=== PATIENT | male | born 1955 | race Caucasian/White ===

== ENCOUNTER 2016-11-22 00:38 | Emergency (ER) | payer BC ==
[2016-11-22 00:44] VITALS: BP 209/100; BMI 31.1
[2016-11-22] MEDS ORDERED: TORADOL 30 MG VIAL ONE (00:45)
[2016-11-22] MEDS ORDERED: NS 1000 ML 1,000 ML ONE (00:45)
[2016-11-22] MEDS ORDERED: TORADOL 30 MG VIAL IVP ONE (00:52)
[2016-11-22] MEDS ORDERED: NS 1000 ML 1,000 ML IV ONE (00:52)
[2016-11-22 01:26] LABS: BASOPHILS # (AUTO) 0.1 X10^3/uL (0.0-0.1); BASOPHILS % (AUTO) 1.1 % (0.2-1.0); EOSINOPHILS # (AUTO) 0.2 x10^3/uL (0.0-0.2); EOSINOPHILS % (AUTO) 1.9 % (0.9-2.9); HEMATOCRIT 37.2 % (42.0-54.0); HEMOGLOBIN 12.7 g/dL (13.5-18.0); LYMPHOCYTES # (AUTO) 1.9 X10^3/uL (1.3-2.9); LYMPHOCYTES % (AUTO) 23.5 % (21.0-51.0); MEAN CORPUSCULAR HEMOGLOBIN 30.7 pg (27.0-34.0); MEAN CORPUSCULAR HGB CONC 34.1 g/dL (33.0-35.0); MEAN PLATELET VOLUME 9.1 fL (7.4-11.0); MONOCYTES # (AUTO) 0.8 x10^3/uL (0.3-0.8); MONOCYTES % (AUTO) 9.4 % (0.0-13.0); NEUTROPHILS # (AUTO) 5.1 x10^3/uL (2.2-4.8); NEUTROPHILS % (AUTO) 64.1 % (42.0-75.0); PLATELET COUNT 218 X10^3/uL (150.0-450.0); RED BLOOD COUNT 4.13 X10^6/uL (4.7-6.0); RED CELL DISTRIBUTION WIDTH 13.7 % (11.6-16.5)
[2016-11-22 01:35] LABS: ALANINE AMINOTRANSFERASE 19 Units/L (12-78); ALBUMIN 3.4 g/dL (3.4-5.0); ALKALINE PHOSPHATASE 40 Units/L (46-116); ASPARTATE AMINO TRANSFERASE 15 Units/L (15-37); BLOOD UREA NITROGEN 21 mg/dL (7-18); CALCIUM 7.7 mg/dL (8.5-10.1); CARBON DIOXIDE 24.4 mmol/L (21-32); CHLORIDE 107 mmol/L (98-107); COR NA(FOR HYPERGLY) 140 mmol/L (136-145); CREATININE 1.54 mg/dL (0.70-1.30); GLUCOSE 166 mg/dL (65-99); SODIUM 138 mmol/L (136-145); TOTAL PROTEIN 6.7 g/dL (6.4-8.2); eGFR BLACK RACES 59 (>60); eGFR NON BLACK RACES 49 (>60)
--- NOTE | 2016-11-22 01:50 | CT ---
EXAM: CT ABDOMEN AND PELVIS WITHOUT CONTRAST INDICATION: Right flank pain COMPARISION: No priors available for comparison TECHNIQUE: Axial CT examination of the abdomen and pelvis was performed without intravenous contrast. Coronal a nd sagittal reconstructions were created using the axial data. FINDINGS: The lung bases are clear. The liver, spleen, pancreas, hand adrenal glands are normal. There is a sm all stone in the gallbladder . There is a nonobstructing left renal calculus. In the distal right ur eter at the UVJ there is a 3 mm stone causing mild right hydronephrosis and hydroureter. There is no evidence of biliary ductal dilatation. The aorta and inferior vena cava are normal in caliber. The bowel loops are nonobstructed. No abnormal mass, lymphadenopathy, or fluid collection. Urinary bladder is normal. There is colonic diverticulosis. The regional skeleton is intact. IMPRESSION: There is a 3 mm stone in the right UVJ causing mild right hydronephrosis and hydroureter. There is a nonobstructing left renal calculus. There is cholelithiasis. Reported By:
[2016-11-22 01:55] LABS: BILIRUBIN,URINE NEGATIVE (NEGATIVE); BLOOD/HEMOGLOBIN,URINE 5+ (NEGATIVE); GLUCOSE, URINE NEGATIVE (NEGATIVE); KETONES,URINE NEGATIVE (NEGATIVE); LEUKOCYTE ESTERASE ,URINE NEGATIVE (NEGATIVE); NITRITES,URINE NEGATIVE (NEGATIVE); PROTEIN,URINE NEGATIVE (NEGATIVE); UROBILINOGEN,URINE NORMAL (NORMAL)
[2016-11-22 01:57] LABS: APPEARANCE,URINE CLEAR (CLEAR); COLOR,URINE YELLOW (YELLOW)
[2016-11-22 02:00] LABS: BACTERIA,URINE TRACE /HPF (NEGATIVE); SQUAMOUS EPITHELIAL CELL,UR RARE /HPF (NEGATIVE)
--- NOTE | 2016-11-22 02:09 | DR.GENAD ---
HPI - PCP Primary Care Physician: juan daniel - HPI Comment HPI Comment: PATIENT HAVE HISTORY OF KIDNEY. HE IS NAUSEA. TOOK MED FOR PAIN AT HOME WITHOUT RELIEF. TAKES DAILY FLOMAX. - Complaint/Symptoms Chief Complaint Doctors Comments: RIGHT FLANK PAIN, HAVING DIFFICULTY URINATING , STARTED TONIGHT. Chief Complaint:: "rt flank pain and i can't pee have not urinated since 2200" states pt - Nurses notes reviewed Nurses Notes Review: Yes - Source History Provided: Patient - Mode of Arrival Mode of Arrival: Ambulatory - Timing Onset of Chief Complaint: 11/22/16 Came on: Suddenly - Duration Duration: Constant Duration: Hours - Severity Severity: Moderate PMH - PMH Past Medical History: Yes Past Medical History: Arthritis, Diabetes, GERD, Hypertension Past Surgical History: Yes Surgical History: Joint Replacement - Family History History of Family Medical Conditions: Yes Family Medical History: Diabetes Mellitus, [place], Heart Failure, Hypertension - Social History Does patient currently use any type of tobacco product: No Have you used tobacco products in the last 12 months: No Type of Tobacco Use: None Does any household member use tobacco: No Alcohol Use: None Do you use any recreational Drugs:: No Lives With: Family Lives Where: Home - infectious screening In the last 2 months have you had wt loss of >10#?: NO Have you had fever, night sweats or hemotysis?: No Have you traveled outside the country in the last 6 months?: No Isolation: Standard ROS - Review of Systems Constitutional: No Symptoms Reported. negative: Chills, Fever Eyes: No Symptoms Reported ENTM: No Symptoms Reported Respiratoy: No Symptoms Reported Cardiovascular: No Symptoms Reported Gastrointestinal/Abdominal: Abdominal Pain, Nausea Genitourinary: Other (URINARY RETENSION PER PATIENT.) Neurological: No Symptoms Reported Musculoskeletal: Other (RIGHT FLANK PAIN) Integumentary: No Symptoms Reported Hematologic/Lymphatic: No Symptoms Reported Endocrine: No Symptoms Reported All Other Systems: Reviewed and Negative PE - Vital Signs Vitals: Temperature 97.7 F Pulse Rate 72 Respiratory Rate 18 Blood Pressure [Right Arm] 146/84 Blood Pressure 209/100 O2 Sat by Pulse Oximetry 99 - General Limitations: No Limitations General Appearance: Alert - Head Head Exam: Normal Inspection - Eyes Eye exam: Normal Appearance - ENT ENT Exam: Normal External Ear Exam External Ear Exam: Normal External Inspection TM/Canal Exam: Bilateral Normal Nose Exam: Normal Nose Exam Mouth Exam: Normal Inspection Throat Exam: Normal Inspection - Neck Neck Exam: Trachea Midline - Chest Chest Inspection: Symmetric Chest Wall Rise - Respiratory Respiratory Exam: Normal Lung Sounds Bilat Respiratory Exam: Bilateral Clear to Auscultation - Cardiovascular Cardiovascular Exam: Regular Rate, Normal Rhythm, Normal Heart Sounds - Abdominal Exam Abdominal Exam: Normal Bowel Sounds, Soft, Tenderness Abdominal Tenderness: RLQ - Extremities Extremities Exam: Normal Inspection - Back Back Exam: (R) CVA Tenderness - Neurologic Neurological Exam: Alert, Oriented X3 - Psychiatric Psychiatric Exam: Normal Affect, Normal Mood - Skin Skin Exam: Normal Color MDM - Additional Information Additional Information Obtained From: Family Findings: UTI, KIDNEY STONE, RIGHT FLANK PAIN. Course - Treatment Treatment: PAIN MED IN ED. PAIN IMPROVE. - Education/Counseling Education/Counseling: Patient, Family, Education Educated On: Treatment, Diagnosis, Needs for Follow Up ROR - Labs Reviewed Laboratory Results Reviewed?: Yes Result Diagrams: 11/22/16 01:15 11/22/16 01:15 Laboratory: WBC 8.0 X10^3/uL (3.6-10.0) 11/22/16 01:15 RBC 4.13 X10^6/uL (4.7-6.0) L 11/22/16 01:15 Hgb 12.7 g/dL (13.5-18.0) L 11/22/16 01:15 Hct 37.2 % (42.0-54.0) L 11/22/16 01:15 MCV 90.0 fL (80.0-100.0) 11/22/16 01:15 MCH 30.7 pg (27.0-34.0) 11/22/16 01:15 MCHC 34.1 g/dL (33.0-35.0) 11/22/16 01:15 RDW 13.7 % (11.6-16.5) 11/22/16 01:15 Plt Count 218 X10^3/uL (150.0-450.0) 11/22/16 01:15 MPV 9.1 fL (7.4-11.0) 11/22/16 01:15 Neut % 64.1 % (42.0-75.0) 11/22/16 01:15 Lymph % 23.5 % (21.0-51.0) 11/22/16 01:15 [place] % 9.4 % (0.0-13.0) 11/22/16 01:15 Eos % 1.9 % (0.9-2.9) 11/22/16 01:15 Baso % 1.1 % (0.2-1.0) H 11/22/16 01:15 Neut # 5.1 x10^3/uL (2.2-4.8) H 11/22/16 01:15 Lymph # 1.9 X10^3/uL (1.3-2.9) 11/22/16 01:15 [place] # 0.8 x10^3/uL (0.3-0.8) 11/22/16 01:15 Eos # 0.2 x10^3/uL (0.0-0.2) 11/22/16 01:15 Baso # 0.1 X10^3/uL (0.0-0.1) 11/22/16 01:15 Absolute Nucleated RBC 0.1 /100WBC 11/22/16 01:15 Sodium 138 mmol/L (136-145) 11/22/16 01:15 Corrected Sodium 140 mmol/L (136-145) 11/22/16 01:15 Potassium 4.2 mmol/L (3.5-5.1) 11/22/16 01:15 Chloride 107 mmol/L (98-107) 11/22/16 01:15 Carbon Dioxide 24.4 mmol/L (21-32) 11/22/16 01:15 BUN 21 mg/dL (7-18) H 11/22/16 01:15 Creatinine 1.54 mg/dL (0.70-1.30) H 11/22/16 01:15 Est GFR (MDRD) Af Amer 59 (>60) 11/22/16 01:15 Est GFR (MDRD) Non-Af 49 (>60) L 11/22/16 01:15 Glucose 166 mg/dL (65-99) H 11/22/16 01:15 Calcium 7.7 mg/dL (8.5-10.1) L 11/22/16 01:15 Corrected Calcium TNP 11/22/16 01:15 Total Bilirubin 0.30 mg/dL (0.2-1.0) 11/22/16 01:15 AST 15 Units/L (15-37) 11/22/16 01:15 ALT 19 Units/L (12-78) 11/22/16 01:15 Alkaline Phosphatase 40 Units/L (46-116) L 11/22/16 01:15 Total Protein 6.7 g/dL (6.4-8.2) 11/22/16 01:15 Albumin 3.4 g/dL (3.4-5.0) 11/22/16 01:15 Globulin 3.3 g/dL (2.5-4.5) 11/22/16 01:15 Albumin/Globulin Ratio 1.0 Ratio (1.1-2.1) L 11/22/16 01:15 Specimen Type Clean catch urine 11/22/16 01:44 Urine Color Yellow (YELLOW) 11/22/16 01:44 Urine Appearance Clear (CLEAR) 11/22/16 01:44 Urine pH 5.0 (5.0 - 8.0) 11/22/16 01:44 Ur Specific [place] 1.015 (1.000-1.030) 11/22/16 01:44 Urine Protein Negative (NEGATIVE) 11/22/16 01:44 Urine Glucose (UA) Negative (NEGATIVE) 11/22/16 01:44 Urine Ketones Negative (NEGATIVE) 11/22/16 01:44 Urine Occult Blood 5+ (NEGATIVE) 11/22/16 01:44 Urine Nitrite Negative (NEGATIVE) 11/22/16 01:44 Urine Bilirubin Negative (NEGATIVE) 11/22/16 01:44 Urine Urobilinogen Normal (NORMAL) 11/22/16 01:44 Ur Leukocyte Esterase Negative (NEGATIVE) 11/22/16 01:44 Urine RBC 3-5 /HPF (NEGATIVE) 11/22/16 01:44 Urine WBC None seen /HPF (NEGATIVE) 11/22/16 01:44 Ur Squamous Epith Cells Rare /HPF (NEGATIVE) 11/22/16 01:44 Urine Bacteria Trace /HPF (NEGATIVE) 11/22/16 01:44 Ur Culture Indicated? No/not indicated 11/22/16 01:44 - XRAY XRAY Interpreted by: Radiologist XRAY Findings: REPORT DISCUSS WITH PATIENTAND . - Diagnosis Discharge Problem: Kidney stone on right side, Right flank pain - Discharge Plan Disposition: HOME, SELF-CARE Condition: Stable Prescriptions: Hydrocodone-Acet 7.5 mg/325 mg [[place] 7.5/325 mg Tab] 1 tab PO Q6H PRN #20 tab PRN Reason: Pain - Follow ups/Referrals Follow ups/Referrals: [facility],None [Primary Care Provider] - 1 day - Instructions Instructions: Kidney Stones Additional Instructions: RETURN TO ED IF WORSE.
== END 2016-11-22 02:31 | disposition home or self-care (01) ==
LOC: ER 00:38
DX: N20.0 Calculus of kidney (principal); R10.84 Generalized abdominal pain
CPT/HCPCS: 36415; 74176; 80053; 81001; 85025; 96365; 96374; 99283; A4222; J1885

== ENCOUNTER 2017-01-05 13:34 | Emergency (ER) | payer BC ==
[2017-01-05 13:40] VITALS: BP 118/60; BMI 31.6
[2017-01-05] MEDS ORDERED: PREDNISONE TAB 20 MG PO ONE ×3 (17:51→18:35)
[2017-01-05] MEDS ORDERED: TORADOL 60 MG VIAL IM ONE (17:51)
--- NOTE | 2017-01-05 17:57 | DR.GENAD ---
HPI - PCP Primary Care Physician: karla - Complaint/Symptoms Chief Complaint Doctors Comments: Patient complains of right foot pain for the past three days with swelling and severe pain in the great toe with him not being able to walk on his right foot today due to the pain. States he is a patient of Dr. Donovan and does not recall hurting his foot. States he has a family history of gout but has never had gout before. States he took ultram recently. He denies fever,chills, nausea or vomiting. Chief Complaint:: patient stated his right foot has been hurting all week but today his big toe is swollen and he cant move it. - Nurses notes reviewed Nurses Notes Review: Yes - Source History Provided: Patient - Mode of Arrival Mode of Arrival: Ambulatory - Timing Onset of Chief Complaint: 01/02/17 Came on: Gradually - Duration Duration: Since Onset How lon Duration: Days - Location Location: right foot and great toe pain - Severity Severity: Severe - Modifying Factors Worsens:: walking and standing Improves:: nothing PMH - PMH Past Medical History: Yes Past Medical History: Arthritis, Diabetes, GERD, Hypertension Past Surgical History: Yes Surgical History: Joint Replacement - Family History History of Family Medical Conditions: Yes Family Medical History: Diabetes Mellitus, [place], Heart Failure, Hypertension - Social History Does patient currently use any type of tobacco product: No Have you used tobacco products in the last 12 months: No Type of Tobacco Use: None Does any household member use tobacco: Yes Alcohol Use: None Do you use any recreational Drugs:: No Lives With: Family Lives Where: Home - infectious screening In the last 2 months have you had wt loss of >10#?: NO Have you had fever, night sweats or hemotysis?: No Have you traveled outside the country in the last 6 months?: No Isolation: Standard ROS - Review of Systems Constitutional: No Symptoms Reported Eyes: No Symptoms Reported. negative: See HPI, Eye Pain, Blurred Vision, Tearing, Discharge, Photophobia, Diplopia, Other ENTM: No Symptoms Reported Respiratoy: No Symptoms Reported. negative: See HPI, Productive Cough, Non- Productive Cough, Moist Cough, Dry Cough, Hacking Cough, Barking Cough, Brassy Cough, Orthopnea, Short of Breath, Stridor, Wheezing, Hemoptysis, Other Cardiovascular: No Symptoms Reported Gastrointestinal/Abdominal: No Symptoms Reported Genitourinary: No Symptoms Reported Neurological: No Symptoms Reported, Problems Walking (right foot pain) Musculoskeletal: No Symptoms Reported, Right, Foot Integumentary: No Symptoms Reported. negative: See HPI, Change in Color, Change in Hair/Nails, Dryness, Lesions, Lumps, Rash, Itching, Wound, Bruises, Juandice, Other Hematologic/Lymphatic: No Symptoms Reported Endocrine: No Symptoms Reported Psychiatric: No Symptoms Reported PE - Vital Signs Vitals: Temperature 98.3 F Pulse Rate 96 Respiratory Rate 16 Blood Pressure [Right Arm] 146/84 Blood Pressure 118/60 O2 Sat by Pulse Oximetry 96 - General Limitations: No Limitations General Appearance: Alert, In Distress (moderate) - Head Head Exam: Normal Inspection, Atraumatic, Normocephalic - Eyes Eye exam: Normal Appearance, PERRL, EOMI. negative: Scleral Icterus, Conjunctival Injection, Nystagmus, Miosis, Mydrasis, Periorbital Swelling, Periorbital Tenderness, Other - ENT ENT Exam: Normal Exam, Normal Oropharynx, Normal External Ear Exam, Mucous Membranes Moist, TM's Normal Bilaterally External Ear Exam: Normal External Inspection TM/Canal Exam: Bilateral Normal Nose Exam: Normal Nose Exam Mouth Exam: Normal Inspection Throat Exam: Normal Inspection - Neck Neck Exam: Normal Inspection - Chest Chest Inspection: Normal Inspection, Symmetric Chest Wall Rise - Respiratory Respiratory Exam: Normal Lung Sounds Bilat. negative: Accessory Muscle Use, Chest Wall Tenderness, Prolonged Expiratory Phase, Respiratory Distress, Stridor , Other Respiratory Exam: Bilateral Clear to Auscultation - Cardiovascular Cardiovascular Exam: Regular Rate, Normal Rhythm, Normal Heart Sounds - Abdominal Exam Abdominal Exam: Normal Inspection, Normal Bowel Sounds, Soft Abdominal Tenderness: negative: RUQ, RLQ, LUQ, LLQ, Epigastrium, Suprapubic, Diffuse, Mild, Moderate, Severe, Other - Extremities Extremities Exam: Normal Inspection, Full ROM, Tenderness (right foot and great toe with swelling and erythema), Normal Capillary Refill - Back Back Exam: Normal Inspection, Full ROM. negative: Tenderness, (R) CVA Tenderness, (L) CVA Tenderness, Muscle Spasm, Paraspinal Tenderness, Vertebral Tenderness, Rashes, (R) Sciatic Notch Tenderness, (L) Sciatic Notch Tendern, (R ) Straight Leg Raise, (L) Straight Leg Raise, Other - Neurologic Neurological Exam: Alert, Oriented X3, CN II-XII Intact, Normal Gait, Reflexes Normal - Psychiatric Psychiatric Exam: Normal Affect, Normal Mood - Skin Skin Exam: Warm, Dry, Intact, Normal Color ROR - Labs Reviewed Laboratory Results Reviewed?: Yes (all labs and x-ray results reviewed and discussed with patient) Result Diagrams: 01/05/17 18:05 01/05/17 18:05 Laboratory: WBC 10.2 X10^3/uL (3.6-10.0) H 01/05/17 18:05 RBC 4.80 X10^6/uL (4.7-6.0) 01/05/17 18:05 Hgb 14.8 g/dL (13.5-18.0) 01/05/17 18:05 Hct 43.1 % (42.0-54.0) 01/05/17 18:05 MCV 89.7 fL (80.0-100.0) 01/05/17 18:05 MCH 30.8 pg (27.0-34.0) 01/05/17 18:05 MCHC 34.4 g/dL (33.0-35.0) 01/05/17 18:05 RDW 13.7 % (11.6-16.5) 01/05/17 18:05 Plt Count 242 X10^3/uL (150.0-450.0) 01/05/17 18:05 MPV 8.4 fL (7.4-11.0) 01/05/17 18:05 Neut % 71.3 % (42.0-75.0) 01/05/17 18:05 Lymph % 18.2 % (21.0-51.0) L 01/05/17 18:05 [place] % 8.4 % (0.0-13.0) 01/05/17 18:05 Eos % 1.2 % (0.9-2.9) 01/05/17 18:05 Baso % 0.9 % (0.2-1.0) 01/05/17 18:05 Neut # 7.3 x10^3/uL (2.2-4.8) H 01/05/17 18:05 Lymph # 1.9 X10^3/uL (1.3-2.9) 01/05/17 18:05 [place] # 0.9 x10^3/uL (0.3-0.8) H 01/05/17 18:05 Eos # 0.1 x10^3/uL (0.0-0.2) 01/05/17 18:05 Baso # 0.1 X10^3/uL (0.0-0.1) 01/05/17 18:05 Absolute Nucleated RBC 0.1 /100WBC 01/05/17 18:05 Sodium 139 mmol/L (136-145) 01/05/17 18:05 Corrected Sodium 140 mmol/L (136-145) 01/05/17 18:05 Potassium 4.4 mmol/L (3.5-5.1) 01/05/17 18:05 Chloride 103 mmol/L (98-107) 01/05/17 18:05 Carbon Dioxide 29.3 mmol/L (21-32) 01/05/17 18:05 BUN 19 mg/dL (7-18) H 01/05/17 18:05 Creatinine 1.29 mg/dL (0.70-1.30) 01/05/17 18:05 Est GFR (MDRD) Af Amer > 60 (>60) 01/05/17 18:05 Est GFR (MDRD) Non-Af 60 (>60) 01/05/17 18:05 Glucose 158 mg/dL (65-99) H 01/05/17 18:05 Uric Acid 9.4 mg/dL (3.5-7.2) H 01/05/17 18:05 Calcium 8.2 mg/dL (8.5-10.1) L 01/05/17 18:05 - XRAY XRAY Interpreted by: Radiologist (right foot: Degenerative changes. Old healed fracture proximal phalanx of the great toe. plantar spurring.) - Diagnosis Discharge Problem: Diabetes mellitus, Degenerative arthritis of foot, Fracture of metatarsal bone of right foot, Heel spur Acute gout Qualifiers: Gout site: toe Encounter type: initial encounter - Discharge Plan Disposition: HOME, SELF-CARE Condition: Stable Prescriptions: Acetaminophen/Codeine Tab [TYLENOL w/CODEINE #3 (300 MG/30 MG) *] 1 tab PO Q4- 6H PRN #24 tab PRN Reason: Pain Febuxostat [Uloric] 40 mg PO DAILY #20 tab Naproxen [NAPROSYN 500 MG *] 500 mg PO BID PRN #40 tab PRN Reason: Pain/Inflammation - Follow ups/Referrals Follow ups/Referrals: TASNEEM DRISCOLL [Primary Care Provider] - 3 days - Instructions Instructions: Low-Purine Diet, Gout, [id number], Heel Spur
[2017-01-05] MEDS ORDERED: COLCRYS TAB 0.6 MG PO SCH (18:00)
[2017-01-05 18:15] LABS: BASOPHILS # (AUTO) 0.1 X10^3/uL (0.0-0.1); BASOPHILS % (AUTO) 0.9 % (0.2-1.0); EOSINOPHILS # (AUTO) 0.1 x10^3/uL (0.0-0.2); EOSINOPHILS % (AUTO) 1.2 % (0.9-2.9); HEMATOCRIT 43.1 % (42.0-54.0); HEMOGLOBIN 14.8 g/dL (13.5-18.0); LYMPHOCYTES # (AUTO) 1.9 X10^3/uL (1.3-2.9); LYMPHOCYTES % (AUTO) 18.2 % (21.0-51.0); MEAN CORPUSCULAR HEMOGLOBIN 30.8 pg (27.0-34.0); MEAN CORPUSCULAR HGB CONC 34.4 g/dL (33.0-35.0); MEAN CORPUSCULAR VOLUME 89.7 fL (80.0-100.0); MEAN PLATELET VOLUME 8.4 fL (7.4-11.0); MONOCYTES # (AUTO) 0.9 x10^3/uL (0.3-0.8); MONOCYTES % (AUTO) 8.4 % (0.0-13.0); NEUTROPHILS # (AUTO) 7.3 x10^3/uL (2.2-4.8); NEUTROPHILS % (AUTO) 71.3 % (42.0-75.0); PLATELET COUNT 242 X10^3/uL (150.0-450.0); RED CELL DISTRIBUTION WIDTH 13.7 % (11.6-16.5); WHITE BLOOD COUNT 10.2 X10^3/uL (3.6-10.0)
[2017-01-05] MEDS ORDERED: COLCRYS TAB 0.6 MG ONE (18:18)
[2017-01-05] MEDS ORDERED: TORADOL 60 MG VIAL ONE (18:20)
[2017-01-05 18:28] LABS: BLOOD UREA NITROGEN 19 mg/dL (7-18); CALCIUM 8.2 mg/dL (8.5-10.1); CARBON DIOXIDE 29.3 mmol/L (21-32); CHLORIDE 103 mmol/L (98-107); COR NA(FOR HYPERGLY) 140 mmol/L (136-145); CREATININE 1.29 mg/dL (0.70-1.30); GLUCOSE 158 mg/dL (65-99); SODIUM 139 mmol/L (136-145); URIC ACID 9.4 mg/dL (3.5-7.2); eGFR BLACK RACES > 60 (>60); eGFR NON BLACK RACES 60 (>60)
--- NOTE | 2017-01-05 18:32 | RAD ---
HISTORY: Right foot pain with no known injury Study: Three views of the right foot Comparison: None Findings: Mild degenerative changes of the 1st metatarsophalangeal and 1st interphalangeal joints are noted. A n old healed fracture involving the proximal phalanx of the great toe cannot entirely be excluded. O therwise no definite evidence of acute displaced fracture or dislocation is identified. Spurring is seen along the plantar insertion of the calcaneus. Mild degenerative changes of the mid and hindfoot are noted. IMPRESSION: 1. Degenerative changes as noted above. Reported By:
== END 2017-01-05 19:22 | disposition home or self-care (01) ==
LOC: ER 13:46
DX: S92.301A Fracture of unspecified metatarsal bone(s), right foot, initial encounter for closed fracture (principal); E11.9 Type 2 diabetes mellitus without complications; M77.30 Calcaneal spur, unspecified foot; M10.9 Gout, unspecified; M19.071 Primary osteoarthritis, right ankle and foot; Y33.XXXA Other specified events, undetermined intent, initial encounter; Y92.9 Unspecified place or not applicable
CPT/HCPCS: 36415; 73630; 80048; 84550; 85025; 96372; 99282; 99283; J1885; J7506

== ENCOUNTER 2017-03-02 16:39 | Emergency (ER) | payer BC ==
[2017-03-02 16:51] VITALS: BP 155/80; BMI 30.7
[2017-03-02] MEDS ORDERED: SOLU-Medrol 125 MG VIAL IM ONE (18:14)
--- NOTE | 2017-03-02 18:15 | DR.EXTPAIN ---
HPI - Time seen Time seen: 18:14 - PCP Primary Care Physician: TASNEEM DRISCOLL - Complaint/Symptoms Chief Complaint Doctor Comments: Patient is complaining of right knee pain that has been getting worst. States he went to see Dr. Bazzi and he did x-rays of his right knee and told him the cartilage was gone and he gave him and injection of roster cone three weeks ago and it did not do any good. He is still having pain in his right knee with the pain worst at night. states he has been seeing his assistent and she has been injecting his right knee with steriods and it has been helping in the past. States he has Ultram at home but it upset his stomach and he is not big on pain medicines.. States his pain is 7 of 10 with the pain being worst at night when he is lying down. He denies any recent trauma. Chief Complaint:: PT C/O CHRONIC KNEE PAIN AND HX GOUT PT HAD A APPT AND HIS KNEE WAS INJECTED PER DR. BAEZA AND HE TRIED TO FLU TASNEEM AND SHE WAS TOO BUSY, , Self Treatment fo Chief Complaint: TYLENOL. - Nurses notes reviewed Nurses Notes Review: Yes - Source History Provided: Patient - Mode of arrival Mode of Arrival: Ambulatory - Timing Onset of Chief Complaint: 02/19/17 - Context History of: Gout, Arthritis, Knee Operation - Associated signs and symptoms Associated Signs and Symptoms: Pain PMH - PMH Past Medical History: Yes Past Medical History: Arthritis, Diabetes, GERD, Hypertension Past Medical History Comment: AFIB,, Past Surgical History: Yes Surgical History: Joint Replacement Past Surgical History Comment: LEFT KNEE. HERNIA RETINA DETACHMENT - Family History History of Family Medical Conditions: No Family Medical History: Diabetes Mellitus, [place], Heart Failure, Hypertension - Social History Does patient currently use any type of tobacco product: No Have you used tobacco products in the last 12 months: No Type of Tobacco Use: None Does any household member use tobacco: No Alcohol Use: None Do you use any recreational Drugs:: No Lives With: Family Lives Where: Home - infectious screening In the last 2 months have you had wt loss of >10#?: NO Have you had fever, night sweats or hemotysis?: No Have you traveled outside the country in the last 6 months?: No Isolation: Standard ROS - Review of Systems Constitutional: No Symptoms Reported. negative: See HPI, Chills, Diaphoresis, Fever, Malaise, Weakness, Irritable, Fatigue, Loss of Appetite, Other Eyes: No Symptoms Reported ENTM: No Symptoms Reported Respiratoy: No Symptoms Reported. negative: See HPI, Productive Cough, Non- Productive Cough, Moist Cough, Dry Cough, Hacking Cough, Barking Cough, Brassy Cough, Orthopnea, Short of Breath, Stridor, Wheezing, Hemoptysis, Other Cardiovascular: No Symptoms Reported Gastrointestinal/Abdominal: No Symptoms Reported Genitourinary: No Symptoms Reported Neurological: No Symptoms Reported, Problems Walking (right knee pain) Musculoskeletal: Right, Knee Integumentary: No Symptoms Reported Hematologic/Lymphatic: No Symptoms Reported Endocrine: No Symptoms Reported Psychiatric: No Symptoms Reported PE - Vital Signs Vitals: Pulse Rate 81 Respiratory Rate 18 Blood Pressure [Right Arm] 146/84 Blood Pressure 155/80 O2 Sat by Pulse Oximetry 96 - General Limitations: No Limitations General Appearance: Alert, In Distress (mild) - Head Head Exam: Normal Inspection, Atraumatic, Normocephalic - Eyes Eye exam: Normal Appearance, PERRL, EOMI. negative: Scleral Icterus, Conjunctival Injection, Nystagmus, Miosis, Mydrasis, Periorbital Swelling, Periorbital Tenderness, Other - ENT ENT Exam: Normal Exam, Normal Oropharynx, Normal External Ear Exam, Mucous Membranes Moist, TM's Normal Bilaterally - Neck Neck Exam: Normal Inspection, Full ROM, Trachea Midline - Chest Chest Inspection: Normal Inspection, Symmetric Chest Wall Rise - Respiratory Respiratory Exam: Normal Lung Sounds Bilat Respiratory Exam: Bilateral Clear to Auscultation - Cardiovascular Cardiovascular Exam: Regular Rate, Normal Rhythm, Normal Heart Sounds - Abdominal Exam Abdominal Exam: Normal Inspection, Normal Bowel Sounds, Soft. negative: Distention, Tenderness, Guarding, Rebound, Rigidity, Dimnished Bowel Sounds, Hyperactive Bowel Sounds, Hypoactive Bowel Sounds, Organomegaly, Trauma, Incision, Ascites, Mass, Bruit, Pulsatile Mass, Hernia, Other Abdominal Tenderness: negative: RUQ, RLQ, LUQ, LLQ, Epigastrium, Suprapubic, Diffuse, Mild, Moderate, Severe, Other - Extremities Extremities Exam: Normal Inspection, Full ROM, Tenderness (right knee with crepitus; slight swelling; no erythema), Normal Capillary Refill, Joint Swelling. negative: Calf Tenderness - Upper Extremities Shoulder Exam: Normal Inspection, Full ROM. negative: Tenderness, Swelling, Abrasion, Laceration, Ecchymosis, Deformity, Crepitus, Dislocation, Erythema, Tenderness over AC Joint, Other Arm Exam: Normal Inspection, Full ROM. negative: Tenderness, Swelling, Abrasion , Laceration, Ecchymosis, Deformity, Crepitus, Erythema, Other Elbow Exam: Normal Inspection, Full ROM. negative: Tenderness, Swelling, Abrasion, Laceration, Ecchymosis, Deformity, Crepitus, Dislocation, Erythema, Effusion, Pain w/ pronation, Pain w/ Spuination, Tenderness over Radial Head, Other Forearm Exam: Normal Inspection, Full ROM. negative: Tenderness, Swelling, Abrasion, Laceration, Ecchymosis, Deformity, Crepitus, Erythema, Dislocation, Other Hand Exam: Normal Inspection, Full ROM. negative: Tenderness, Swelling, Abrasion, Laceration, Ecchymosis, Skin Avulsion, Deformity, Crepitus, Erythema, Dislocation, Amputation, Nail Avulsion, Subungual Hematoma, Other Neuromotor Exam: Normal Exam. negative: Wrist Extension, Thumb Opposition, Thumb IP Flexion, Thumb Adduction, Fingers 2-5 Abduction, Other Neurosensory Exam: Normal Exam Hand Tendon Exam: negative: Flexor Digitorium Profundus (Location), Flexor Digitorium Superficialis (Location), Extensor Tendon (Location), Other Upper Ext. Vascular Exam: Capillary Refill (normal), Radial Pulse (normal) - Lower Extremities Hip/Pelvis Exam: Normal Inspection, Full ROM. negative: Tenderness, Swelling, Abrasion, Laceration, Ecchymosis, Deformity, Crepitus, Dislocation, Erythema, External Rotation, Internal Rotation, Shortening, Pelvis Stable, Other Upper Leg Exam: Normal Inspection, Full ROM. negative: Tenderness, Swelling, Abrasion, Laceration, Ecchymosis, Deformity, Crepitus, Dislocation, Erythema, Other Knee Exam: Normal Inspection, Tenderness (right knee with tenderness medial aspect; ), Crepitus, Effusion Lower Leg Exam: Normal Inspection, Full ROM. negative: Tenderness, Swelling, Abrasion, Laceration, Deformity, Ecchymosis, Crepitus, Dislocation, Erythema, Palpable Cord, Homans' Sign, Achilles Tendon Intact, Other Ankle Exam: Normal Inspection, Full ROM. negative: Tenderness, Swelling, Abrasion, Laceration, Ecchymosis, Deformity, Crepitus, Dislocation, Erythema, Tenderness over talofibular lig, Anterior Draw Sign, Other Foot/Toe Exam: Normal Inspection, Full ROM. negative: Tenderness, Swelling, Abrasion, Laceration, Ecchymosis, Deformity, Crepitus, Dislocation, Erythema, Amputation, Puncture Wound, Foreign Body, Calcaneal Tenderness, Nail Avulsion, Other Neurovascular/Tendon Exam: Normal Capillary Refill Gait Exam: Not Tested/Not Observed - Diagnosis Discharge Problem: Degenerative arthritis of right knee, Knee effusion, right Right knee pain Qualifiers: Chronicity: chronic Qualified Code(s): M25.561 - Pain in right knee; G89.29 - Other chronic pain; G89.29 - Other chronic pain - Discharge Plan Disposition: 01 HOME, SELF-CARE Condition: Stable Prescriptions: Methylprednisolone Dosepak 4Mg [MEDROL DOSEPAK (4 mg tab x 21)] 1 kaelyn PO ONCE # 1 kaelyn - Follow ups/Referrals Follow ups/Referrals: TASNEEM DRISCOLL [Primary Care Provider] - 3 days STUART SUE [CONSULTING PHYSICIAN] - 3 days - Instructions Instructions: Knee Pain, Osteoarthritis, Joint Pain, [id number]
[2017-03-02] MEDS ORDERED: SOLU-Medrol 125 MG VIAL ONE (18:22)
== END 2017-03-02 18:45 | disposition home or self-care (01) ==
LOC: ER 16:54
DX: M17.11 Unilateral primary osteoarthritis, right knee (principal); M25.461 Effusion, right knee; G89.29 Other chronic pain
CPT/HCPCS: 96372; 99282; J2930

== ENCOUNTER 2017-04-03 04:46 | Emergency (ER) | payer BC ==
[2017-04-03 05:02] VITALS: BP 199/97; BMI 30.5
--- NOTE | 2017-04-03 05:16 | DR.GENAD ---
HPI - PCP Primary Care Physician: nfd - Complaint/Symptoms Chief Complaint Doctors Comments: Patient states that he had a burning sensation in stomach this morning. The sensation was generalized, no gurgling, spasm or pain. Chief Complaint:: pt states" i was feeling hot felt like my skin was burning off then i had a funny feeling in my chest so i said i better go to the hospital i have a burning feeling in my stomach and my knee is about a 5 out of 10 " - Source History Provided: Patient - Mode of Arrival Mode of Arrival: Ambulatory - Timing Onset of Chief Complaint: 04/03/17 PMH - PMH Past Medical History: Yes Past Medical History: Arthritis, Diabetes, GERD, Hypertension Past Surgical History: Yes Surgical History: Joint Replacement - Family History History of Family Medical Conditions: Yes Family Medical History: Diabetes Mellitus, DC, Heart Failure, Hypertension - Social History Does any household member use tobacco: No Alcohol Use: None Do you use any recreational Drugs:: No Lives With: Family Lives Where: Home - infectious screening In the last 2 months have you had wt loss of >10#?: NO Have you had fever, night sweats or hemotysis?: No Have you traveled outside the country in the last 6 months?: No Isolation: Standard ROS - Review of Systems Constitutional: negative: Diaphoresis Eyes: No Symptoms Reported ENTM: No Symptoms Reported Respiratoy: No Symptoms Reported Cardiovascular: No Symptoms Reported Gastrointestinal/Abdominal: Other (stomach burning inside) Genitourinary: No Symptoms Reported Neurological: No Symptoms Reported Musculoskeletal: No Symptoms Reported Integumentary: No Symptoms Reported Hematologic/Lymphatic: No Symptoms Reported Endocrine: No Symptoms Reported All Other Systems: Reviewed and Negative PE - Vital Signs Vitals: Temperature 98.1 F Pulse Rate 78 Respiratory Rate 18 Blood Pressure [Right Arm] 146/84 Blood Pressure 199/97 O2 Sat by Pulse Oximetry 98 - General Limitations: No Limitations General Appearance: Alert, In No Apparent Distress - Head Head Exam: Normal Inspection, Atraumatic - Eyes Eye exam: Normal Appearance, PERRL, EOMI - ENT ENT Exam: Normal Exam External Ear Exam: Normal External Inspection TM/Canal Exam: Bilateral Normal Nose Exam: Normal Nose Exam Mouth Exam: Normal Inspection Throat Exam: Normal Inspection - Neck Neck Exam: Normal Inspection, Full ROM - Chest Chest Inspection: Normal Inspection, Symmetric Chest Wall Rise - Respiratory Respiratory Exam: Normal Lung Sounds Bilat Respiratory Exam: Bilateral Clear to Auscultation - Cardiovascular Cardiovascular Exam: Regular Rate, Normal Rhythm - Abdominal Exam Abdominal Exam: Normal Inspection, Soft, Hernia (diastsis recti). negative: Tenderness, Pulsatile Mass Abdominal Tenderness: negative: RUQ, RLQ, LUQ, LLQ, Epigastrium, Suprapubic, Diffuse, Mild, Moderate, Severe, Other - Extremities Extremities Exam: Normal Inspection, Full ROM - Back Back Exam: Normal Inspection, Full ROM - Neurologic Neurological Exam: Alert, Oriented X3, CN II-XII Intact - Psychiatric Psychiatric Exam: Normal Affect - Skin Skin Exam: Warm, Dry, Intact Course - Education/Counseling Education/Counseling: Education Educated On: Treatment, Diagnosis, Prognosis ROR - Labs Reviewed Laboratory Results Reviewed?: Yes (H pylori positive) Result Diagrams: 04/03/17 05:47 04/03/17 05:47 Laboratory: WBC 8.0 X10^3/uL (3.6-10.0) 04/03/17 05:47 RBC 4.62 X10^6/uL (4.7-6.0) L 04/03/17 05:47 Hgb 14.0 g/dL (13.5-18.0) 04/03/17 05:47 Hct 41.5 % (42.0-54.0) L 04/03/17 05:47 MCV 89.9 fL (80.0-100.0) 04/03/17 05:47 MCH 30.3 pg (27.0-34.0) 04/03/17 05:47 MCHC 33.7 g/dL (33.0-35.0) 04/03/17 05:47 RDW 14.0 % (11.6-16.5) 04/03/17 05:47 Plt Count 309 X10^3/uL (150.0-450.0) 04/03/17 05:47 MPV 8.3 fL (7.4-11.0) 04/03/17 05:47 Neut % 64.5 % (42.0-75.0) 04/03/17 05:47 Lymph % 24.7 % (21.0-51.0) 04/03/17 05:47 Craig % 8.4 % (0.0-13.0) 04/03/17 05:47 Eos % 0.9 % (0.9-2.9) 04/03/17 05:47 Baso % 1.5 % (0.2-1.0) H 04/03/17 05:47 Neut # 5.2 x10^3/uL (2.2-4.8) H 04/03/17 05:47 Lymph # 2.0 X10^3/uL (1.3-2.9) 04/03/17 05:47 Craig # 0.7 x10^3/uL (0.3-0.8) 04/03/17 05:47 Eos # 0.1 x10^3/uL (0.0-0.2) 04/03/17 05:47 Baso # 0.1 X10^3/uL (0.0-0.1) 04/03/17 05:47 Absolute Nucleated RBC 0.1 /100WBC 04/03/17 05:47 Sodium 140 mmol/L (136-145) 04/03/17 05:47 Corrected Sodium 141 mmol/L (136-145) 04/03/17 05:47 Potassium 4.3 mmol/L (3.5-5.1) 04/03/17 05:47 Chloride 104 mmol/L (98-107) 04/03/17 05:47 Carbon Dioxide 27.4 mmol/L (21-32) 04/03/17 05:47 BUN 19 mg/dL (7-18) H 04/03/17 05:47 Creatinine 1.26 mg/dL (0.70-1.30) 04/03/17 05:47 Est GFR (MDRD) Af Amer > 60 (>60) 04/03/17 05:47 Est GFR (MDRD) Non-Af > 60 (>60) 04/03/17 05:47 Glucose 130 mg/dL (65-99) H 04/03/17 05:47 Calcium 8.8 mg/dL (8.5-10.1) 04/03/17 05:47 C-Reactive Protein 1.80 mg/L (0-3.0) 04/03/17 05:47 H. pylori IgG Antibody Positive (NEGATIVE) A 04/03/17 05:47 - XRAY XRAY Interpreted by: Radiologist (Acute Abd: Comparison with CT abd/pel 11/22/16 : The hear size is normal. No focal consolidation, effusion or pneumothorax is identitied. The visualized bowel gas pattern is nonobstructive. No free air or pneumatosis is identified. A 1-2mm calcification projecting over the left upper kideney is compatible with a renal stone. No definite calcifications are identified along the expected course of the ureters. Visualized osseous structures are grossly intact) - Diagnosis Discharge Problem: Kidney stone on right side, Helicobacter pylori gastritis - Discharge Plan Condition: Stable - Follow ups/Referrals Follow ups/Referrals: NFD,None [Primary Care Provider] - 3 days - Instructions
[2017-04-03 05:53] LABS: BASOPHILS # (AUTO) 0.1 X10^3/uL (0.0-0.1); BASOPHILS % (AUTO) 1.5 % (0.2-1.0); EOSINOPHILS # (AUTO) 0.1 x10^3/uL (0.0-0.2); EOSINOPHILS % (AUTO) 0.9 % (0.9-2.9); HEMATOCRIT 41.5 % (42.0-54.0); LYMPHOCYTES % (AUTO) 24.7 % (21.0-51.0); MEAN CORPUSCULAR HEMOGLOBIN 30.3 pg (27.0-34.0); MEAN CORPUSCULAR HGB CONC 33.7 g/dL (33.0-35.0); MEAN CORPUSCULAR VOLUME 89.9 fL (80.0-100.0); MEAN PLATELET VOLUME 8.3 fL (7.4-11.0); MONOCYTES # (AUTO) 0.7 x10^3/uL (0.3-0.8); MONOCYTES % (AUTO) 8.4 % (0.0-13.0); NEUTROPHILS # (AUTO) 5.2 x10^3/uL (2.2-4.8); NEUTROPHILS % (AUTO) 64.5 % (42.0-75.0); PLATELET COUNT 309 X10^3/uL (150.0-450.0); RED BLOOD COUNT 4.62 X10^6/uL (4.7-6.0)
--- NOTE | 2017-04-03 05:59 | RAD ---
Acute abdominal series Indication: Abdominal pain Comparison: CT abdomen pelvis 11/22/2016 Findings: The heart size is normal. No focal consolidation, effusion or pneumothorax is identified. The visualized bowel gas pattern is nonobstructive. No free air or pneumatosis is identified. A 1-2 m m calcification projecting over the left upper kidney is compatible with a renal stone. No definite c alcifications are identified along the expected course of the ureters. Visualized osseous structures are grossly intact. Impression: No acute chest process. 1-2 mm left renal calculus. Reported By:
[2017-04-03 06:05] LABS: BLOOD UREA NITROGEN 19 mg/dL (7-18); CALCIUM 8.8 mg/dL (8.5-10.1); CARBON DIOXIDE 27.4 mmol/L (21-32); CHLORIDE 104 mmol/L (98-107); COR NA(FOR HYPERGLY) 141 mmol/L (136-145); CREATININE 1.26 mg/dL (0.70-1.30); SODIUM 140 mmol/L (136-145); eGFR BLACK RACES > 60 (>60); eGFR NON BLACK RACES > 60 (>60)
== END 2017-04-03 06:42 | disposition home or self-care (01) ==
LOC: ER 04:46
DX: N20.0 Calculus of kidney (principal); B96.81 Helicobacter pylori [H. pylori] as the cause of diseases classified elsewhere
CPT/HCPCS: 36415; 74022; 80048; 85025; 86140; 86677; 99282; 99283